=== PATIENT | male | born 2000 | race Two or more races ===

== ENCOUNTER 2025-06-20 09:13 | Emergency (ER) | payer MEDICAID ==
[~2025-06-20] VITALS: Ht 175.3 cm; Wt 69.3 kg
[2025-06-20 10:02] VITALS: BP 137/69; PULSE 84; RESP 19; TEMP 99.1; O2SAT 99
--- NOTE | 2025-06-20 10:30 | ED.PDOC ---
History of Present Illness HPI Comments 25 year old male presents to the ED with a chief compliant of tooth pain onset 1 month. Patient states he has been experiencing Lt sided tooth pain for the past month, has not seen Dentist due to insurances issues. About 1 month ago, patient was experiencing tooth pain with drainage, was cleansing, resolved on its own. This morning, patient noticed facial swelling, tooth pain worsen, began experiencing purulent drainage. No other symptoms or modifying factors present at this time. Denies chest pain shortness of breath Denies inability to move neck, history of meningitis Denies difficulty swallowing nor persistent salivation Denies fevers chills night sweats Chief Complaint: Tooth Pain Time Seen by MD: 10:25 Reviewed Notes: Nurses Notes, Medications, Allergies Allergies: Coded Allergies: NO KNOWN ALLERGIES (Unverified , 06/20/25) Information Source: Patient Mode of Arrival: Ambulatory Severity: Moderate Timing: Months Duration: Since onset Prehospital treatment: None Past Medical History PAST MEDICAL HISTORY: Denies Surgical History: Denies all surgeries Family History Family History: Reviewed,noncontributory to illness, No family hx of Cancer, No family hx of DM, No family hx of Heart sherrill, No family hx of HTN, No family hx ofKidney sherrill, No family hx of Liver sherrill, No family hx of Lung sherrill, No family hx of Stroke Social History Smoker: Non-Smoker Alcohol: Denies ETOH Use Drugs: Denies Drug Use Lives In: Home All Other Systems: Reviewed and Negative (as per HPI) Physical Exam General Appearance: No Apparent Distress, Normal HEENT: Other (noticable swelling to LT mandable. lateral tooth 17 and 18 with visual yellow purulent discharge. TTP. No trismus. ) Neck: Full Range of Motion, Non-Tender, Normal, Normal Inspection Respiratory: Chest Non-Tender, Lungs Clear, No Accessory Muscle Use, No Respiratory Distress, Normal Breath Sounds Cardiovascular: No Edema, No JVD, No Murmur, No Gallop, Normal Peripheral Pulses, Regular Rate/Rhythm Breast Exam: Deferred Gastrointestinal: No Organomegaly, Non Tender, No Pulsatile Mass, Normal Bowel Sounds, Soft Genitalia: Deferred Pelvic: Deferred Rectal: Deferred Extremities: No calf tenderness, Normal capillary refill, Normal inspection, Normal range of motion, Non-tender, No pedal edema Musculoskeletal : Apperance: Normal Neurologic: Alert, metallography teacher II-XII nml as Tested, No Motor Deficits, Normal Affect, Normal Mood, No Sensory Deficits Cerebellar Function: Normal Reflexes: Normal Skin: Dry, Normal Color, Warm Lymphatic: No Adenopathy Was a procedure done? Was a procedure done?: No X-Ray, Labs, Meds, VS Vital Signs Date Time Temp Pulse Resp B/P (MAP) Pulse Ox O2 Delivery O2 Flow Rate FiO2 06/20/25 10:02 84 19 99 Room Air 06/20/25 10:02 99.1 84 19 137/69 (91) 99 99.1 06/20/25 09:14 99.1 90 18 135/92 96 99.1 Lab Test 06/20/25 10:45 Range/Units White Blood Count 9.8 4.4-10.8 10^3/uL Red Blood Count 5.01 4.5-5.90 10^6/uL Hemoglobin 16.3 13.5-17.5 g/dL Hematocrit 45.8 41.0-53.0 % Mean Corpuscular Volume 91.4 80.0-100.0 fL Mean Corpuscular Hemoglobin 32.5 H 28.0-32.0 pg Mean Corpuscular Hemoglobin Concent 35.6 32.0-36.0 g/dL Red Cell Distribution Width 13.2 11.8-14.3 % Platelet Count 293 140-450 10^3/uL Mean Platelet Volume 8.5 6.9-10.8 fL Neutrophils (%) (Auto) 76.4 37.0-80.0 % Lymphocytes (%) (Auto) 16.8 10.0-50.0 % Monocytes (%) (Auto) 6.2 0.0-12.0 % Eosinophils (%) (Auto) 0.2 0.0-7.0 % Basophils (%) (Auto) 0.4 0.0-2.0 % Neutrophils # (Auto) 7.5 1.6-8.6 10 ^3/uL Lymphocytes # (Auto) 1.6 0.4-5.4 10 ^3/uL Monocytes # (Auto) 0.6 0-1.3 10 ^3/uL Eosinophils # (Auto) 0 0-0.8 10 ^3/uL Basophils # (Auto) 0 0-0.2 10 ^3/uL Nucleated Red Blood Cells 0.0 % Sodium Level 140 136-145 mmol/L Potassium Level 3.8 3.5-5.1 mmol/L Chloride Level 103 98-107 mmol/L Carbon Dioxide Level 27 20-31 mmol/L Anion Gap 10 5-15 Blood Urea Nitrogen 10 9-23 mg/dL Creatinine 0.96 0.700-1.30 mg/dL Glomerular Filtration Rate Calc 111 >90 mL/min BUN/Creatinine Ratio 10.4 10.0-20.0 Serum Glucose 94 74-106 mg/dL Calcium Level 9.5 8.7-10.4 mg/dL Current Medications Medications (Trade) Dose Ordered Sig/Catrina Route Start Time Stop Time Status Last Admin Acetaminophen/ Hydrocodone Bitart ([place] 5/325MG Tab) 1 tab ONCE ONCE PO 06/20/25 10:30 06/20/25 10:31 DC 06/20/25 11:04 Ketorolac Tromethamine (Toradol Injection) 60 mg ONCE ONCE IM 06/20/25 10:30 06/20/25 10:31 DC 06/20/25 11:04 [place] [id number] Ph: [phone] DIAGNOSTIC IMAGING Diagnostic Imaging Report : [id number] Signed PATIENT: ZACK GODFREY ACCT: [id number] UNIT: [id number] : 2000 LOC: ER ROOM / BED: / AGE / SEX: 25 / M ADM STATUS: REG ER SERVICE 1027 ORDERING PHYSICIAN: SHARIF PRATHER NP PROCEDURE(s): FACIC - MAXILLOFACIAL WITH REASON: suspected abscess to LLQ ORDER NUMBER(s): [id number], ACCESSION NUMBER(s): [id number] HISTORY: suspected abscess to LLQ. Pain and swelling. TECHNIQUE: Nonenhanced axial images through the facial bones with coronal and sagittal MPR. Radiation Dose Information: CT Dose: CTDI volume is 61.54 mGy. Dose-length product is 1280.69 mGy*cm COMPARISON: None FINDINGS: Thin rim enhancing pocket of fluid along the anterior periosteal surface of the left mandibular body measuring 2.0 x 0.5 cm. No bony erosive changes. Generalized soft tissue edema. Visualized portions of the brain, orbits, and paranasal sinuses are unremarkable. No suspect lymphadenopathy. IMPRESSION: Thin rim enhancing pocket of fluid along the anterior margin of the left aaliyah mandible suggestive of an abscess. Radiation optimization: All CT scans at this facility use at least one of these dose optimization techniques: automated exposure control mA and/or kV adjustment per patient size (includes targeted exams where dose is matched to clinical indication) or iterative reconstruction. ATED BY: DEON MATHUR MD DICTATED DATE/TIME: 06/20/25 1123 SIGNED BY: DEON MATHUR MD SIGNED DATE/TIME: 06/20/25 112 CC: X-Ray, Labs, Meds, VS Comment 25 year old male presents to the ED with a chief compliant of tooth pain onset 1 month. Patient arrives alert and oriented, ABC's intact, afebrile, vital signs stable, saturating well in room air Peripheral IV insertion+ labs were ordered. CBC was ordered to exclude anemia, blood loss, or infection. BMP was ordered to exclude electrolyte abnormalities, renal failure, dehydration, hyperglycemia Diagnostic imaging ordered by me and results interpreted by radiology : CT maxillofacial with IV: IMPRESSION: Thin rim enhancing pocket of fluid along the anterior margin of the left aaliyah mandible suggestive of an abscess. Radiation optimization: All CT scans at this facility use at least one of these dose optimization techniques: automated exposure control mA and/or kV adj ustment per patient size (includes targeted exams where dose is matched to clinical indication) or iterative reconstruction. Labs in the ED showed (pertinent+ and then pertinent-) Patient was given: Ioxhel 30,000 mg IJ, Ketoralac 60 mg IM, [place] 5/325 mg PO. Tolerated medications with no adverse reaction. Additional MDM Review of External, Non-ED records: External records reviewed. Discussion with independent historian (EMS, family) history obtained from the patient/parents (if applicable) at bedside Chronic conditions affecting care: None Social determinants of health affecting care: None Consideration of admission (observation or admission): I considered escalation of care to admission for this patient, however given the reassuring workup, the patient is safe for outpatient management. On reevaluation, patient had symptomatic improvement. Patient is stable for discharge at this time. External notes reviewed. Test results and diagnostic imaging interpreted. All diagnostic findings, discharge care, education and instructions provided Follow-up with PCP in 2 to 3 days Patient verbalized understanding and agreed to treatment plan Vital signs stable, afebrile, no acute distress noted Patient ambulatory with strong steady gait Advised to return precautions for any new or worsening symptoms, return to ER immediately for re-evaluation Patient is aware that the purpose of this visit was for an acute medical emergency requiring emergent stabilization. Chronic conditions, including malignancies have not been ruled out. Patient is instructed to follow up with PCP as directed and discharge instructions for continued care and workup. If unable to arrange follow-up, patient is to return to the emergency department for reassessment. Patient (parent or legal guardian if applicable) was given verbal and written discharge instructions and acknowledges understanding. Time of 1ST Reevaluation: 10:55 Reevaluation 1ST: Improved Patient Education/Counseling: Diagnosis, Treatment Family Education/Counseling: No Family Present SEPSIS Sepsis Screen Date sepsis recognized/suspect: Jun 20, 2025 Time Sepsis recognized/suspect: 912 Recent Procedure: No On Antibiotic Therapy: No Respiratory Rate >20: No Heart Rate >90: Yes Temp<36 C (96.8 F) or >38.3 C: No SBP <90 or MAP <65 mmHG: No New Acute Mental Status Change: No Is the patient on CPAP, BIPAP,: No Physician Orders Heplock Iv (06/20/25 ) Maxillofacial With (06/20/25 10:27) Vital Signs Date Time Temp Pulse Resp B/P (MAP) Pulse Ox O2 Delivery O2 Flow Rate FiO2 06/20/25 10:02 84 19 99 Room Air 06/20/25 10:02 99.1 84 19 137/69 (91) 99 99.1 06/20/25 09:14 99.1 90 18 135/92 96 99.1 Laboratory Tests Test 06/20/25 10:45 White Blood Count 9.8 10^3/uL (4.4-10.8) Medications Medications Dose Ordered Sig/Catrina Route Start Time Stop Time Status Last Admin Dose Admin Acetaminophen/ Hydrocodone Bitart 1 tab ONCE ONCE PO 06/20/25 10:30 06/20/25 10:31 DC 06/20/25 11:04 Ketorolac Tromethamine 60 mg ONCE ONCE IM 06/20/25 10:30 06/20/25 10:31 DC 06/20/25 11:04 Departure 1 Departure Time of Disposition: 11:49 Impression: Primary Impression: Tooth abscess Disposition: HOME / SELF CARE / HOMELESS Condition: Fair e-Prescriptions Amoxicillin Trihydrate (Amoxicillin) 500 Mg Tab 1 TAB PO BID for 10 Days, #20 TAB 0 Refills Prov: SHARIF PRATHER NP 06/20/25 Critical Care Note Critical Care Time?: No Stability Stability form required: No Heart Score Heart Score: Heart Score Response (Comments) Value History N/A 0 EKG N/A 0 Age N/A 0 Risk Factors N/A 0 Troponin N/A 0 Total 0 I personally scribed for SHARIF PRATHER INSTRUMENT ASSEMBLY SUPERVISOR ([email or web address]) on 06/20/25 at 10:30. Electronically submitted by Deja Hedrick ([email or web address]). I personally scribed for SHARIF PRATHER NP ([email or web address]) on 06/20/25 at 10:33. Electronically submitted by Deja Hedrick ([email or web address]). I personally scribed for SHARIF PRATHER NP ([email or web address]) on 06/20/25 at 11:48. Electronically submitted by Deja Hedrick ([email or web address]). SHARIF PRATHER NP Jun 20, 2025 10:30
[2025-06-20] MEDS: HYDROcodone-ACET 5/325MG TAB PO ONE (11:04)
[2025-06-20] MEDS: KETOROLAC TROMETH 60MG/2ML VIAL IM ONE (11:04)
[2025-06-20 11:09] LABS: Hematocrit 45.8 % (41.0-53.0); Hemoglobin 16.3 g/dL (13.5-17.5); Mean Corpuscular Hemoglobin 32.5 pg (28.0-32.0); Mean Corpuscular Volume 91.4 fL (80.0-100.0); Nucleated Red Blood Cells % 0.0 %
[2025-06-20] MEDS: IOHEXOL 300 MG/ML 100ML BOTTLE IJ ONE (11:10)
[2025-06-20 11:20] LABS: Anion Gap 10 (5-15); Carbon Dioxide 27 mmol/L (20-31); Chloride 103 mmol/L (98-107); Potassium 3.8 mmol/L (3.5-5.1); Sodium 140 mmol/L (136-145)
[2025-06-20 11:21] LABS: Calcium 9.5 mg/dL (8.7-10.4)
--- NOTE | 2025-06-20 11:25 | DVH ---
HISTORY: suspected abscess to LLQ. Pain and swelling. TECHNIQUE: Nonenhanced axial images through the facial bones with coronal and sagittal MPR. Radiation Dose Information: CT Dose: CTDI volume is 61.54 mGy. Dose-length product is 1280.69 mGy*cm COMPARISON: None FINDINGS: Thin rim enhancing pocket of fluid along the anterior periosteal surface of the left mandibular body measuring 2.0 x 0.5 cm. No bony erosive changes. Generalized soft tissue edema. Visualized portions of the brain, orbits, and paranasal sinuses are unremarkable. No suspect lymphade nopathy. IMPRESSION: Thin rim enhancing pocket of fluid along the anterior margin of the left aaliyah mandible suggestive of an abscess. Radiation optimization: All CT scans at this facility use at least one of these dose optimization alla hniques: automated exposure control mA and/or kV adjustment per patient size (includes targeted exam s where dose is matched to clinical indication) or iterative reconstruction.
[2025-06-20 11:26] LABS: BUN/Creatinine Ratio 10.4 (10.0-20.0); Blood Urea Nitrogen 10 mg/dL (9-23); Glucose 94 mg/dL (74-106)
[2025-06-20] MEDS ORDERED: AMOX500T3 PO (11:49)
== END 2025-06-20 12:01 | disposition home or self-care (01) ==
LOC: ER 09:13
DX: K04.7 Periapical abscess without sinus (principal); R42 Dizziness and giddiness; Z79.899 Other long term (current) drug therapy
CPT/HCPCS: 36415; 70487; 80048; 85025; 96372; 99285; J1885; Q9967